=== PATIENT | female | born 1995 | race Caucasian/White ===

== ENCOUNTER 2019-07-20 09:13 | Emergency (ER) | payer BC ==
[2019-07-20 10:37] VITALS: BP 115/67
--- NOTE | 2019-07-20 11:00 | UC ---
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 - History of Current Complaint Chief Complaint: UCEar Stated Complaint: RT EAR PRESSURE Time Seen by Provider: 07/20/19 10:51 Hx Obtained From: Patient Hx Last Menstrual Period: ~07/15/19 Onset/Duration: Gradual Onset, Lasting Weeks - 2 Severity Initially: Mild Severity Currently: Moderate Pain Intensity: 6 Alleviating Factors: OTC Meds Associated Signs/Symptoms: Positive: Hearing Loss - mild decrease on right., URI Symptoms - Allergies/Home Medications Allergies/Adverse Reactions: Allergies Allergy/AdvReac Type Severity Reaction Status Date / Time erythromycin base Allergy Unknown Verified 07/20/19 10:33 Reaction Details Penicillins Allergy Unknown Verified 07/20/19 10:33 Reaction Details Home Medications: Home Medications Pseudoephedrine HCL ER TAB* [Sudafed 12 Hour*] 120 mg PO BID PRN 07/20/19 [ History Confirmed 07/20/19] PMH/Surg Hx/FS Hx/Imm Hx - Additional Past Medical History Additional PMH: Penicillin and erythro caused urticaria in the past. Previously Healthy: Yes - Surgical History Surgical History: Yes Surgery Procedure, Year, and Place: [facility], ~1997, [place] - Family History Known Family History: Positive: Cardiac Disease - father had valvular heart disease, Other - mother has MS - Social History Occupation: Employed Full-time Lives: With Family Alcohol Use: Rare Substance Use Type: None Smoking Status (MU): Never Smoked Tobacco Review of Systems All Other Systems Reviewed And Are Negative: Yes Constitutional: Positive: Fatigue Skin: Positive: Negative Eyes: Positive: Negative ENT: Positive: Sore Throat, Ear Ache, Sinus Congestion Respiratory: Positive: Cough Cardiovascular: Positive: Negative Gastrointestinal: Positive: Negative Motor: Positive: Negative Neurovascular: Positive: Negative Musculoskeletal: Positive: Negative Neurological: Positive: Headache Psychological: Positive: Negative Physical Exam Triage Information Reviewed: Yes Appearance: Ill-Appearing - looks fatigued, Pain Distress - mild Vital Signs: Initial Vital Signs Temp 98.5 F 07/20/19 10:31 Pulse 76 07/20/19 10:31 Resp 16 07/20/19 10:31 BP 115/67 07/20/19 10:31 Pulse Ox 100 07/20/19 10:31 Eyes: Positive: Conjunctiva Clear ENT: Positive: Pharyngeal erythema - ++ posterior drainage., TM dull - retracted + on the right. LEFT ear with erythema and retraction.. Negative: Tonsillar swelling, Tonsillar exudate Neck: Positive: Supple, Nontender Respiratory: Positive: Lungs clear, Normal breath sounds Cardiovascular: Positive: RRR, No Murmur Musculoskeletal Exam: Normal Neurological Exam: Normal Neurological: Positive: Alert Psychological Exam: Normal Skin Exam: Normal Ear Complaint Course/Dx - Course Course Of Treatment: given duration of symptoms, trial of cephalexin for treatment of sinusitis. Add flonase spray. - Differential Dx/Diagnosis Differential Diagnosis/HQI/PQRI: Otitis Externa, Otitis Media, Pharyngitis, Other - sinusitis Provider Diagnosis: Sinusitis Discharge ED - Sign-Out/Discharge Documenting (check all that apply): Patient Departure All imaging exams completed and their final reports reviewed: No Studies - Discharge Plan Condition: Stable Disposition: HOME Prescriptions: cephALEXin [Keflex] 500 mg PO BID #20 capsule Patient Education Materials: Sinusitis (ED) Forms: *Work Release Referrals: No Primary Care Phys,NOPCP [Primary Care Provider] - Additional Instructions: Begin cephalexin to treat sinusitis. There is approximately a 5% chance of a cross allergic reaction; discontinue if you develop itch or hives. ADD flonase spray 2 sprays to both nostrils once daily; this will help to relieve ear pressure. Use ibuprofen for headache 600mg up to 3x per day if needed. - Billing Disposition and Condition Condition: STABLE Disposition: Home
== END 2019-07-20 11:21 | disposition home or self-care (01) ==
LOC: UCCORT 09:13
DX: J32.9 Chronic sinusitis, unspecified (principal); R53.81 Other malaise; H92.01 Otalgia, right ear; Z88.1 Allergy status to other antibiotic agents; Z88.0 Allergy status to penicillin
CPT/HCPCS: 99202; G0463